=== PATIENT | male | born 1955 | race Caucasian/White ===

== ENCOUNTER 2019-01-22 18:34 | Inpatient (IN) | payer OTHER ==
[~2019-01-22] VITALS: Ht 177.8 cm; Wt 87.8 kg
[2019-01-22 18:34] VITALS: BP 120/81
[2019-01-22] MEDS ORDERED: ASPIR 8181 MG PO (18:54)
[2019-01-22] MEDS ORDERED: COZAAR 25 MG TA25 M1 PO (18:57)
[2019-01-22] MEDS ORDERED: LOPRESSOR50 PO (18:57)
[2019-01-22 18:59] LABS: ABSOLUTE NEUTROPHILS 6.5 thou/uL (1.4-8.2); BASOPHILS 0.9 % (0.0-2.0); EOSINOPHILS 0.5 % (0.0-3.0); HEMOGLOBIN 15.7 gm/dL (14.0-18.0); LYMPHOCYTES 13.2 % (24.0-44.0); MCH 33.4 pg (26.0-34.0); MCHC 33.5 g/dL (28.0-37.0); MCV 99.9 fL (80.0-100.0); MONOCYTES 8.1 % (1.0-8.0); PLATELET COUNT 270 thou/uL (150-400); POLYS 77.3 % (36.0-66.0); RBC 4.71 mil/uL (4.50-6.00); RDW 14.5 % (10.5-14.5); WBC 8.4 thou/uL (4.0-11.0)
[2019-01-22 19:17] LABS: ANION GAP 15 mmol/L (7-16); BUN 22 mg/dL (7-18); CALCIUM 9.6 mg/dL (8.5-10.1); CHLORIDE 98 mmol/L (98-107); CO2 21 mmol/L (21-32); CREATININE 1.2 mg/dL (0.7-1.3); GLUCOSE 140 mg/dL (74-106); POTASSIUM 3.7 mmol/L (3.5-5.1); SODIUM 134 mmol/L (136-145)
[2019-01-22 19:28] LABS: ALBUMIN 3.7 g/dL (3.4-5.0); DIRECT BILIRUBIN 0.3 mg/dL (<0.1-0.3); MAGNESIUM 2.1 mg/dL (1.8-2.4); SGOT 126 U/L (15-37); SGPT 70 U/L (30-65); TOTAL PROTEIN 7.7 g/dL (6.4-8.2); TROPONIN-I <0.06 ng/mL (<0.06)
[2019-01-22 20:03] LABS: AMP/METHAMP Negative (Negative); BARBITURATES Negative (Negative); BENZODIAZEPINES Negative (Negative); COCAINE Negative (Negative); METHADONE Negative (Negative); OPIATES Negative (Negative); PCP Negative (Negative)
[2019-01-22 20:06] LABS: URINE BLOOD NEGATIVE (Negative); URINE CLARITY CLEAR; URINE COLOR YELLOW; URINE GLUCOSE-RANDOM* NEGATIVE (Negative); URINE KETONES 2+ (Negative); URINE LEUKOCYTES-REFLEX NEGATIVE (Negative); URINE NITRITE-REFLEX NEGATIVE (Negative); URINE PROTEIN (DIPSTICK) TRACE (Negative); URINE UROBILINOGEN 0.2 E.U./dl (0.2-1.0)
[2019-01-22 20:07] LABS: ICTOTEST (BILI CONFIRMATORY) Negative (Negative); URINE BILIRUBIN NEGATIVE (Negative)
[2019-01-22 20:43] VITALS: BP 120/81
[2019-01-22 21:07] VITALS: BP 139/103
[2019-01-22 21:43] VITALS: BP 149/100
[2019-01-22 23:35] VITALS: BP 137/85
[2019-01-23] VITALS (11 sets, daily range): BP systolic 123–150; BP diastolic 84–107
[2019-01-23] MEDS ORDERED: LIPITOR 20 MG T20 M1 PO (00:12)
--- NOTE | 2019-01-23 04:01 | NUR ---
PT ARRIVED FROM ER VIA CART. PLACED IN ROOM 349. ADMISSION ASSESSMENTS COMPLETED. PT AWAWE AT THIS TIME. HAS DENIED ANY DIZZINESS SINCE ARRIVING. UP TO TOILET X2 WITH SBA, DENIED ANY DIZZINESS WHEN AT REST OR AMBULATING. PT MAKING PROGRESS TOWARDS GOALS.
[2019-01-23 05:46] LABS: CHOLESTEROL 164 mg/dL (<200); HDL CHOLESTEROL 84 mg/dL (>40); LDL CHOLESTEROL 58 mg/dL (<100); TRIGLYCERIDE 113 mg/dL (<150); VLDL 23 mg/dL (<40)
[2019-01-23 06:04] LABS: SERUM ASSESSMENT Clear
--- NOTE | 2019-01-23 10:04 | NUR ---
ASSESSMENT: CM REVIEWED CHART AND MET WITH PATIENT AT THE BEDSIDE. PT IS ALERT AND ORIENTED X4. PT WAS ADMITTED WITH NEAR SYNCOPE. PT REPORTS HE LIVES IN A HOUSE ALONE BUT STATES HE WILL PROBABLY GO BACK TO HIS HOME FOR A FEW DAYS AT DISCHARGE BUT IS SELLING IT AND MOVING IN WITH HIS AUNT. PT REPORTS HE LIVES IN A SPLIT LEVEL HOME AND HAS ABOUT 6 STEPS UP WITH HANDRAILS AND 6 STEPS DOWN WITH HANDRAILS. PT REPORTS HE IS INDEPENDENT WITH ADLS AND AMBULATION. PT REPORTS HE DOES NOT HAVE ANY DME. CM DISCUSSED ROLE. PT REPORTS HE FEELS BACK TO HIS BASELINE AND DOES NOT FEEL HE WILL HAVE ANY NEEDS AT DISCHARGE. PT/OT TO SEE PATIENT AND EVALS ARE PENDING. PT IS SHOWING PATIENT PAY AND CM ASKED PATIENT ABOUT THIS AND HE STATES HE HAS [employer] INSURANCE AND EVEN PROVIDED HIS CARD AT ADMISSION. CM NOTIFIED DW [phone] OF THIS AND TO SEE IF SHE CAN VERIFY IT. PT REPORTS HE SENT HIS INSURANCE CARD HOME WITH HIS SON. CM WILL CONTINUE TO FOLLOW TO ASSIST NEEDED.
--- NOTE | 2019-01-23 11:42 | 2DMMODE ---
[facility] [place] [address] 2 D/M-MODE ECHOCARDIOGRAM Name: SANJAYRhondaKANNAN Room #: 349-I ADM IN .R.#: [id number] ������������� Admission: 01/22/19 ������������� Attend Phys: Giovany Russell, Discharge: ��� ������������� ��� Date of : 57 Date of Service: 01/23/19 1142 �� Report #: [id number] �������� ��������������������������������������������[id number] THIS REPORT FOR: //name// APPROVED REPORT Study performed: 01/23/2019 10:19:05 EXAM: Comprehensive 2D, Doppler, and color-flow Echocardiogram Patient Location: Echo lab Room #: 349 Status: routine BSA: 2.06 HR: 81 bpm BP: 149/102 mmHg Rhythm: NSR Other Information Study Quality: Adequate Indications Short of air with exercise. Hx: CVA, PE. 2D Dimensions RVDd: 36.47 mm IVSd: 12.36 (7-11mm) LVOT Diam: 22.32 (18-24mm) LVDd: 41.43 mm PWd: 12.04 (7-11mm) Ascending Ao: 32.85 (22-36mm) LVDs: 28.34 (25-40mm) Aortic Root: 40.61 mm Volumes Left Atrial Volume (Systole) Single Plane 4CH: 39.82 mL Single Plane 2CH: 52.00 mL LA ESV Index: 24.00 mL/m2 Aortic Valve AoV Peak Alex.: 1.03 m/s AO Peak Gr.: 4.27 mmHg LVOT Max P.20 mmHg LVOT Max V: 0.89 m/s DEBBY Vmax: 3.39 cm2 Mitral Valve E/A Ratio: 0.8 MV Decel. Time: 273.33 ms MV E Max Alex.: 0.54 m/s [facility] [address] [address] 2 D/M-MODE ECHOCARDIOGRAM Name: KANNAN ESPINOSA Room #: 349-I [facility] IN M.R.#: [id number] ������������� Admission: 01/22/19 ������������� Attend Phys: Giovany Russell, Discharge: ��� ������������� ��� Date of : 57 Date of Service: 01/23/19 1142 �� Report #: [id number] �������� ��������������������������������������������[id number] MV A Alex.: 0.67 m/s MV PHT: 79.26 ms IVRT: 87.66 ms Pulmonary Valve PV Peak Alex.: 0.58 m/s PV Peak Gr.: 1.33 mmHg Pulmonary Vein P Vein S: 0.43 m/s P Vein A: 0.22 m/s P Vein D: 0.26 m/s P Vein A Dur.: 115.3 msec P Vein S/D Ratio: 1.65 Tricuspid Valve TR Peak Alex.: 2.28 m/s TR Peak Gr.: 20.88 mmHg Left Ventricle The left ventricle is normal size. Mild concentric left ventricular hypertrophy. Left ventricular systolic function is normal. LVEF is 55%. Mild diastolic dysfunction is present (impaired relaxation pattern). Right Ventricle The right ventricle is normal size. The right ventricular systolic function is normal. Atria The left atrium size is normal. The right atrium size is normal. Aortic Valve The aortic valve is normal in structure, mildly calcified. Mild aortic regurgitation. Mitral Valve The mitral valve is normal in structure. Mild mitral annular calcification. Mild mitral regurgitation. Tricuspid Valve The tricuspid valve is normal in structure. Trace tricuspid regurgitation. Estimated PAP is 20mmHg plus the right atrial pressure. Pulmonic Valve The pulmonary valve is normal in structure. Trace pulmonic regurgitation. [facility] [address] [place] [address] 2 D/M-MODE ECHOCARDIOGRAM Name: KANNAN ESPINOSA Room #: 349-I [facility] IN ..#: [id number] ������������� Admission: 01/22/19 ������������� Attend Phys: Giovany Russell, Discharge: ��� ������������� ��� Date of : 57 Date of Service: 01/23/19 1142 �� Report #: [id number] �������� ��������������������������������������������[id number] [employer] Vessels Aortic root is dilated at 4.1cm. The ascending aorta is normal in size. IVC is not well visualized. Pericardium There is no pericardial effusion. <Conclusion> The left ventricle is normal size. Mild concentric left ventricular hypertrophy. Left ventricular systolic function is normal. Mild diastolic dysfunction is present (impaired relaxation pattern). The right ventricle is normal size. The left atrium size is normal. The aortic valve is normal in structure, mildly calcified. Mild aortic regurgitation. Mild mitral regurgitation. Trace tricuspid regurgitation. Estimated PAP is 20mmHg plus the right atrial pressure. ��������������������������������������������� <ELECTRONICALLY SIGNED> ���������������������������������������� By: Avery Perez MD ��������������������������������������������� 01/23/19 1142 1142 1142 Avery Perez MD /INF
--- NOTE | 2019-01-23 12:04 | NUR ---
christine called Patti from [facility] to let her know patient may possibly dc today or if not then this weekend. If he does they can take back
--- NOTE | 2019-01-23 14:45 | EKG ---
[address] [address] ELECTROCARDIOGRAM REPORT Name: YEIMIROHINIKANNAN Room #: 349-I ADM IN M.R.#: [id number] ������������������ Admission: 01/22/19 ������������������ Attend Phys: Giovany Russell MD Discharge: ������������������ Date of : 57 Report #: [id number] ����������������������������������������������������������������� [id number] THIS REPORT FOR: //name// [facility] ED Test Date: 2019-01-22 Test Time: 18:35:18 Pat Name: KANNAN ESPINOSA Department: Room: 349 Gender: M Painter Set: [place] : 1955 Requested By: Nova Paniagua Order Number: [id number] MD: Avery Perez Measurements Intervals [place] Rate: 77 P: 53 NM: 158 QRS: 30 QRSD: 97 T: 29 QT: 428 QTc: 485 Interpretive Statements Sinus rhythm Borderline prolonged QT interval No previous ECG available for comparison Electronically Signed On 01-23-2019 14:44:35 CDT by Avery Perez [email or web address] ��������������������������������������������� <ELECTRONICALLY SIGNED> ���������������������������������������� By: Avery Perez MD ��������������������������������������������� 01/23/19 1444 1835 1835 Avery Perez MD /BRIANA
--- NOTE | 2019-01-23 20:17 | NUR ---
PT A HIGH FALL RISK..REPORTS PASSING OUT AT HOME AND VERTIGO/WEAKNESS...
[2019-01-24] VITALS (7 sets, daily range): BP systolic 140–175; BP diastolic 101–123
[2019-01-24 01:06] LABS: GLYCOHEMOGLOBIN (HGB A1C) 5.3 % (4.8-5.6)
--- NOTE | 2019-01-24 04:04 | NUR ---
resting quietly tonight. denies vertigo tonight. calls for assist out of bed. denies pain. continues on iv fluids. bp wnl's this am. he asked for meletonin at bedtime, and this did help him rest. careplan reviewed.
[2019-01-24 10:21] LABS: CALCIUM 9.1 mg/dL (8.5-10.1); CREATININE 1.1 mg/dL (0.7-1.3); POTASSIUM 4.2 mmol/L (3.5-5.1); TOTAL BILIRUBIN 0.5 mg/dL (<0.1-1.0); TOTAL PROTEIN 6.3 g/dL (6.4-8.2)
--- NOTE | 2019-01-24 11:26 | HC ---
[facility] [place] [address] CONSULTATION Name: JESÚSKANNAN Room #: 349-I [facility] IN ..#: [id number] Admission: 01/22/19 ������������������ Attend Phys: Giovany Russell MD Discharge: ������������������ Date of : 57 Report #: [id number] THIS REPORT FOR: //name// CC: LYNETTE physician/PCP Giovany Russell DATE OF SERVICE: 01/23/2019 ENDOCRINE CONSULTATION REASON FOR CONSULTATION: Hypothyroidism. HISTORY OF PRESENT ILLNESS: This is a 63-year-old male patient whose medical background is only significant for hypertension. The patient was admitted yesterday following a near syncopal episode after which he presented to the ER. On further questioning, the patient notes that he has been increasingly fatigued and weak and somewhat off balance over the past few weeks. He recalls an episode a couple of weeks ago where he fell down due to suddenly losing his balance and being too weak to remain standing, but insists that he did not pass out. He believes that the same has happened prior to his presentation, only this time he was incontinent of stool as well. The patient was admitted for further care and monitoring, and his workup revealed lab findings that are suggestive of hypothyroidism. However, this was a fairly new information to the patient who denies having had a past medical history of thyroid disease or a family history of the same. He has not noted skin or hair changes. However, he notes that he had lost 15 pounds through diet measures. 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 Also, he had a stroke in October of this year and a PE in 07/2018. REVIEW OF SYSTEMS: CONSTITUTIONAL: Fatigue, tiredness, weakness, weight loss that is intentional. SKIN: Negative for rash, ulceration or discoloration. HEENT: Negative for nasal discharge, earache, sinus congestion. PULMONARY: Negative for shortness of breath, cough or hemoptysis. CARDIAC: Negative for chest pain, palpitations, syncope, but positive for presyncope. GASTROINTESTINAL: Negative for abdominal pain, nausea, vomiting or changes in bowel movement frequency. NEUROLOGY: Noted for near syncope, but not seizures. There is a report of stool incontinence. MUSCULOSKELETAL: Negative for arthralgia, myalgia, limitation of movement. PSYCHIATRIC: Negative for hallucinations, delusions. [facility] [address] [place] [address] CONSULTATION Name: KANNAN ESPINOSA Room #: 349-I [facility] IN [facility].#: [id number] Admission: 01/22/19 ������������������ Attend Phys: Giovany Russell MD Discharge: ������������������ Date of : 57 Report #: [id number] GENITOURINARY: Negative for dysuria, hematuria, or frequency. Otherwise, review of systems noncontributory other than those mentioned in HPI. PAST MEDICAL HISTORY: 1. Hypertension. 2. CVA. 3. Left adrenal tumor status post adrenalectomy. 4. PE. 5. Hyperlipidemia. OUTPATIENT MEDICATIONS: Include atorvastatin 20 mg at bedtime, aspirin 81 mg daily, metoprolol 50 mg b.i.d., losartan 25 mg daily. ALLERGIES: No known drug allergies. FAMILY HISTORY: Noncontributory. SOCIAL HISTORY: He is , he has 3 kids. Denies use of tobacco. Drinks alcohol occasionally. PHYSICAL EXAMINATION: GENERAL: Pleasant, middle-aged male patient who is not in apparent pain or distress. VITAL SIGNS: Blood pressure is 142/105 mmHg, heart rate of 77 beats per minute, respirations 18 per minute, temperature 36.6 degrees. HEENT: Anicteric sclerae. Intact extraocular motions. NECK: Supple, without JVD, carotid bruits or lymphadenopathy. I do not appreciate thyromegaly. CHEST: Clear to auscultation with scattered rales, but no wheezes or rhonchi. CARDIOVASCULAR: Regular rate and rhythm without murmurs or gallops. ABDOMEN: Soft and lax without tenderness or organomegaly. He has active bowel sounds. LOWER EXTREMITIES: Negative for ankle edema. The patient has good pedal pulses bilaterally. NEUROLOGIC: Awake, alert and oriented to time, place and person. The remainder of his examination is nonfocal. PSYCHIATRIC: Awake, oriented, alert, pleasant, normal mood and affect. SKIN: No ulceration or discoloration or other notable changes. LABORATORY DATA: Sodium 134, potassium 3.7, chloride 98, CO2 of 21, anion gap 15, BUN 22, creatinine 1.2, glucose 140, AST 126, total bilirubin 1.0, direct bilirubin 0.3, calcium 9.6, magnesium 2.1, alkaline phosphatase 94, ALT 70, total protein 7.7, albumin 3.7, GFR 61, total cholesterol 164, triglycerides 113, HDL 84, LDL 58. Free T4 is 1.2. Drug screen is negative. White blood count 8.4, hemoglobin 15.7, hematocrit 47.0, platelets 270. TSH 8.620. [address] [address] CONSULTATION Name: KANNAN ESPINOSA Room #: 349-I ADM IN M.Lam.#: [id number] Admission: 01/22/19 ������������������ Attend Phys: Giovany Russell MD Discharge: ������������������ Date of : 57 Report #: [id number] ASSESSMENT AND PLAN: 1. Hypothyroidism. The patient's workup upon admission was consistent with subclinical hypothyroidism in the presence of slightly elevated TSH with normal free T4. His clinical course over the past few weeks was noted for a group of symptoms, some of which could be seen in the context of hypothyroidism. In order to assess this aspect further, I would request thyroid peroxidase antibodies and a thyroid ultrasound examination. These would enable us to determine whether or not active levothyroxine therapy is needed at this point in time. 2. Adrenal insufficiency. The patient presented with rapidly progressive weakness, fatigability, and 2 near syncopal episodes. It is interesting that the patient has had a left adrenalectomy several months ago. I would like to screen the patient for the possibility of adrenal insufficiency with a random cortisol level and DHEA levels. Further workup will be based on these results. 3. Hypertension. The patient is maintained on a regimen of metoprolol and losartan. He is currently on metoprolol and is doing well. This is to continue. 4. Hyperlipidemia. The patient is on atorvastatin therapy and is stable. He is advised to continue that. I certainly appreciate this consultation by Dr. Russell. ��������������������������������������������� <ELECTRONICALLY SIGNED> ���������������������������������������� By: Daniela Key MD ��������������������������������������������� 01/24/19 1126 1408 0407 Daniela Key MD /nt
--- NOTE | 2019-01-24 20:09 | NUR ---
PT REMAINS A FALL RISK RE VERTIGO ON ADMISSION...FALL PREC IN PLACE...
--- NOTE | 2019-01-24 23:02 | NUR ---
COMPLAINS THAT HE HAS HAD A MORE STRESSFUL DAY THAN USUAL AND THAT HE IS UNABLE TO RELAX AND FEELS THAT HE NEEDS A MEDICATION TO HELP HIM RELAX. HE IS TRYING TO BE COMPLAINT WITH TREATMENTS AND THERAPIES AND HE FEELS THIS WILL HELP.
[2019-01-25] VITALS (8 sets, daily range): BP systolic 113–153; BP diastolic 77–107
--- NOTE | 2019-01-25 01:15 | NUR ---
pt is complaining that he is having a headache that is a 10/10. he wants something to help the pain. i spoke with the guest relations coordinator and recieved an order for tramadol iv x1 30 mg. and ibuprophen 400 mg po q 6 hrs as needed for pain.
--- NOTE | 2019-01-25 05:09 | NUR ---
pt is doing better at this time, his headache is undercontrol. he stated that it only hurts if he places counter pressure to his head. he calls for assist out of bed. he is able to rest at this time.
[2019-01-25 06:07] LABS: CORTISOL 30 MIN 20.2 ug/dL (Not Estab.); CORTISOL 60 MIN 23.6 ug/dL (Not Estab.); CORTISOL BASELINE 12.5 ug/dL (())
[2019-01-25 08:34] LABS: ALBUMIN 3.4 g/dL (3.4-5.0); CALCIUM 9.7 mg/dL (8.5-10.1); POTASSIUM 3.6 mmol/L (3.5-5.1); TOTAL BILIRUBIN 0.7 mg/dL (<0.1-1.0); TOTAL PROTEIN 6.9 g/dL (6.4-8.2)
--- NOTE | 2019-01-25 15:11 | NUR ---
PATIENT REPORTED HEADACHE THIS MORNING. BP MEASURED. INCREASED FROM EARLIER VITALS. BP MEDICATION GIVEN PER ORDERS. PROVIDER NOTIFIED REGARDING PATIENT HEADACHE REPORTED OUTSIDE OF PAIN SCALE ORDERED FOR MEDICATION. ONETIME ORDER OBTAINED AND MEDS ADMINISTERED TO PATIENT. PATIENT REPORTS DECREASE IN SYMPTOMS AND PAIN. DENIES NEED FOR PAIN MEDICATION FOR REMAINDER OF SHIFT. ORTHOSTATIC BP MEASUREMENTS OBTAINED AND CHARTED ORDERED. PATIENT BLOOD PRESSURE MONITORED THIS SHIFT. FALL PRECAUTIONS IN PLACE, AGREES TO CALL FOR ASSIST.
[2019-01-26 00:09] LABS: HAV IgM AB (ANTI-HAV IgM) Negative (Negative); HEPATITIS B SURFACE AG Negative (Negative); HEPATITIS C VIRUS AB <0.1 (0.0-0.9)
[2019-01-26 03:24] VITALS: BP 122/96
--- NOTE | 2019-01-26 05:58 | NUR ---
PATIENTS CARE WAS ASSUMED AT SHIFT CHANGE. PATIENT WAS ASSESSED AND MEDS WERE PASSED. HOURLY ROUNDING WAS DONE. REPORT GIVEN FOR THE PATIENT TO HAVE NO COFFEE ,NO CHOCOLATE. PATIENT DID SNACK AT APPROX 0300 OF GRAM CRACKERS AND MILK. STRESS TEST TODAY. THE BED IS IN A LOW AND LOCKED POSITION. THE BED ALARM IS ON.
[2019-01-26 07:20] VITALS: BP 153/117
[2019-01-26 11:16] LABS: PROTIME 9.4 Seconds (9.3-11.4)
[2019-01-26 11:18] LABS: % SATURATION 19 % (20-39); IRON 42 ug/dL (65-175); TIBC 226 ug/dL (250-450)
--- NOTE | 2019-01-26 12:32 | NUR ---
PT IS HAVING STRESS TEST TODAY...WILL FOLLOW UP WITH ENDOCRINOLGY IN ABOUT 6-8 WEEKS TO REPEAT THYROID LABS...DR OLSON SIGNED OFF TODAY...
[2019-01-26 14:03] VITALS: BP 137/91
--- NOTE | 2019-01-26 14:23 | NUR ---
ON-GOING ASSESSMENT: CM REVIEWED CHART AND MET WITH PATIENT AT THE BEDSIDE. PT HAD STRESS TEST TODAY-RESULTS PENDING. CM DISCUSSED POSSIBLE HH WITH PATIENT AND PT STATES HE DOES NOT WANT HH OR FEEL HE NEEDS IT. CM WILL CONTINUE TO FOLLOW TO ASSIST NEEDED.
[2019-01-26 16:02] VITALS: BP 150/107
[2019-01-26 18:59] VITALS: BP 130/82
[2019-01-27] VITALS (7 sets, daily range): BP systolic 138–142; BP diastolic 97–101
--- NOTE | 2019-01-27 02:43 | NUR ---
PATIENT IS ALERT AND ORIENTED. PATIENT IS SBA DUE TO SYNCOPE. PATIENT IS ROOMAIR. PATIENTS LBM WAS THE 6 OR 7TH. PATIENT IS NSR ON TELE. PATIENTS BLOOD PRESSURE HAS BEEN STABLE. PATIENT IS PENDING DISCHARGE TODAY. PATIENT DENIES PAIN. PATIENT IS RESTING COMFORTABLY IN BED. WCM. PATIENT IS PROGRESSING TO GOALS.
[2019-01-27 05:45] LABS: DIRECT BILIRUBIN < 0.1 mg/dL (<0.1-0.3); SGOT 76 U/L (15-37); SGPT 106 U/L (30-65); TOTAL BILIRUBIN 0.4 mg/dL (<0.1-1.0); TOTAL PROTEIN 6.5 g/dL (6.4-8.2)
[2019-01-27] MEDS ORDERED: FOLIC ACID1 MG PO (13:11)
[2019-01-27] MEDS ORDERED: SYNTHROID25 MC1 PO (13:11)
[2019-01-27] MEDS ORDERED: COZAAR 25 MG TA25 M1 PO (13:12)
[2019-01-27 15:08] LABS: CERULOPLASMIN 23.1 mg/dL (16.0-31.0)
--- NOTE | 2019-01-27 15:37 | NUR ---
PT DISCHARGED TO HOME W/ FOLLOW UP WITH PCP and neuro...RX GIVEN...
[2019-01-27 19:07] LABS: ANA INTERPRETATION Negative (())
== END 2019-01-27 15:48 | disposition home or self-care (01) | DRG 312 ==
LOC: ER 18:34 → EROBS 20:37 → 3W 20:37
PROVIDERS: Emergency Medicine; Internal Medicine; Nurse Practitioner; Nurse Practitioner Acute Care; Psychiatry & Neurology Neurology; Specialist; ADMIT Internal Medicine
DX: R55 Syncope and collapse (principal); E89.6 Postprocedural adrenocortical (-medullary) hypofunction; G95.89 Other specified diseases of spinal cord; R47.01 Aphasia; I95.1 Orthostatic hypotension; R74.0 Nonspecific elevation of levels of transaminase and lactic acid dehydrogenase [LDH]; R32 Unspecified urinary incontinence; R47.81 Slurred speech; I16.0 Hypertensive urgency; E53.8 Deficiency of other specified B group vitamins; I10 Essential (primary) hypertension; E78.5 Hyperlipidemia, unspecified; F10.10 Alcohol abuse, uncomplicated; E03.9 Hypothyroidism, unspecified; K21.9 Gastro-esophageal reflux disease without esophagitis; Z86.010 Personal history of colon polyps; Z86.711 Personal history of pulmonary embolism; Z86.73 Personal history of transient ischemic attack (TIA), and cerebral infarction without residual deficits; Z86.718 Personal history of other venous thrombosis and embolism; Z79.899 Other long term (current) drug therapy; Z80.0 Family history of malignant neoplasm of digestive organs; Z82.49 Family history of ischemic heart disease and other diseases of the circulatory system
CPT/HCPCS: 10879